=== PATIENT | male | born 1970 | race Hispanic/Latino ===

== ENCOUNTER 2016-11-11 21:46 | Inpatient (IN) | payer BC, MEDICAID ==
--- NOTE | 2016-11-11 21:57 | ED PDOC ---
Arrival/HPI - General Time Seen by Provider: 11/11/16 21:47 Historian: Patient - History of Present Illness Narrative History of Present Illness (Text): 11/11/16 21:50 Fran Myles is a 46 year old male who presents to the emergency department for evaluation of right sided weakness following a syncopal episode few hours prior. Patient states that he fell down 4 hours prior and was found unconscious on the floor by his 2 hours later. Patient developed right sided weakness following the episode. Currently patient is alert, oriented X3 and does not have slurred speech or facial droop. Denies any chest pain, shortness of breath, nausea, vomiting, urinary/bowel incontinence or any other complaints at this time. Time/Duration: 4-6 hours Symptom Onset: Sudden Symptom Course: Improving Severity Level: Mild Context: Home Past Medical History - Provider Review Nursing Documentation Reviewed: Yes - Infectious Disease Hx of Infectious Diseases: None - Tetanus Immunization Tetanus Immunization: Unknown - Psychiatric Hx Depression: No Hx Emotional Abuse: No Hx Physical Abuse: No Hx Substance Use: No - Suicidal Assessment Feels Threatened In Home Enviroment: No Family/Social History - Physician Review Nursing Documentation Reviewed: Yes Family/Social History: No Known Family HX Smoking Status: Heavy Smoker > 10 Cigarettes Daily Hx Alcohol Use: No Hx Substance Use: No Hx Substance Use Treatment: No Allergies/Home Meds Allergies/Adverse Reactions: Allergies No Known Allergies Allergy (Verified 11/11/16 21:54) Review of Systems - Physician Review All systems were reviewed & negative as marked: Yes - Review of Systems Constitutional: Normal. absent: Fatigue, Fevers Respiratory: Normal. absent: SOB Cardiovascular: Normal. absent: Chest Pain Gastrointestinal: absent: Nausea, Vomiting Genitourinary Male: Normal Neurological: Other (right sided weakness ). absent: Headache, Dizziness, Facial Droop Psychiatric: Normal Physical Exam Vital Signs Reviewed: Yes Vital Signs Temp Pulse Resp BP Pulse Ox 11/12/16 02:25 88 16 148/84 99 11/11/16 23:47 98.2 F 82 18 156/92 H 99 11/11/16 22:56 74 174/103 H Temperature: Afebrile Blood Pressure: Normal Pulse: Regular Respiratory Rate: Normal Appearance: Positive for: Well-Appearing, Non-Toxic, Comfortable Pain Distress: None Mental Status: Positive for: Alert and Oriented X 3 - Systems Exam Head: Present: Atraumatic, Normocephalic Pupils: Present: PERRL Conjunctiva: Present: Normal Respiratory/Chest: Present: Clear to Auscultation, Good Air Exchange. No: Respiratory Distress, Accessory Muscle Use Cardiovascular: Present: Regular Rate and Rhythm, Normal S1, S2. No: Murmurs Upper Extremity: Present: Normal Inspection, Other (Right arm, no effort against gravity. ). No: Cyanosis, Edema Lower Extremity: Present: Normal Inspection. No: Edema Neurological: Present: GCS=15, CN II-XII Intact, Speech Normal, Motor Func Grossly Intact, Normal Sensory Function, Other (sensation intact. good radio tester strength. ) Skin: Present: Warm, Dry, Normal Color. No: Rashes Psychiatric: Present: Alert, Oriented x 3, Normal Insight, Normal Concentration Medical Decision Making ED Course and Treatment: 11/11/16 21:58 Impression: A 46 year old male who presents to the ed with right sided weakness following a syncopal episode hours prior to arrival. Plan: -- CT Head -- EKG -- Labs -- CXR Progress Notes: 11/11/16 22:13 EKG reviewed by me: NSR @ 82 bpm. Normal [place]. Normal interval. CT Head results reviewed: IMPRESSION: There is ? subtle hypodensity in the right thalamus on image 31 and 30 , possibility of an infarct is not excluded. MRI is recommended. 11/11/16 22:21 Case discussed with , neurologist, who recommends not to administer tPa as he passed the window. 11/12/16 01:15 CTA head results reviewed: IMPRESSION: Possible origin right [employer], right [employer] is poorly visualized, venous contamination, occlusion is not excluded. Case discussed with Dr. Oh, who is aware and agrees with the plan to admit patient to telemetry for CVA. Accepts patient under his service. 11/14/16 23:09 - Lab Interpretations Lab Results: 11/11/16 22:15 11/11/16 22:15 Lab Results 11/11/16 22:15: WBC 12.8 H D, RBC 6.02, Hgb 17.6, Hct 50.7, MCV 84.2, MCH 29.2, MCHC 34.7, RDW 14.2, Plt Count 191, MPV 12.6 H, Gran % 85.8 H, Lymph % (Auto) 9.1 L, Callahan % (Auto) 4.8, Eos % (Auto) 0.2 L, Baso % (Auto) 0.1, Gran # 11.00 H , Lymph # 1.2, Callahan # 0.6, Eos # 0.0, Baso # 0.01, PT 10.8, INR 1.00, APTT 28.8 , Sodium 138, Potassium 4.8, Chloride 98, Carbon Dioxide 28, Anion Gap 17, BUN 19, Creatinine 1.1, Est GFR ( Amer) > 60, Est GFR (Non-Af Amer) > 60, Random Glucose 117 H, Hemoglobin A1c 6.0, Calcium 9.9, Total Bilirubin 1.1, AST 31, ALT 40, Alkaline Phosphatase 69, Troponin I < 0.01, Total Protein 8.7 H, Albumin 4.6, Globulin 4.0, Albumin/Globulin Ratio 1.2, Triglycerides 159, Cholesterol 253 H, LDL Cholesterol Direct 175 H, HDL Cholesterol 43 I have reviewed the lab results: Yes - RAD Interpretation Narrative RAD Interpretations (Text): EXAM: CT Head Without Intravenous Contrast FINDINGS: Brain: There is ? subtle hypodensity in the right thalamus on image 31 and 30 , possibility of an infarct is not excluded. MRI is recommended. No hemorrhage. Ventricles: Unremarkable. No ventriculomegaly. Bones/joints: Unremarkable. No acute fracture. Soft tissues: Unremarkable. Sinuses: Unremarkable as visualized. No acute sinusitis. Mastoid air cells: Unremarkable as visualized. No mastoid effusion. IMPRESSION: There is ? subtle hypodensity in the right thalamus on image 31 and 30 , possibility of an infarct is not excluded. MRI is recommended. 11/12/16 01:15 EXAM: CT Angiography Head With Intravenous Contrast FINDINGS: Right internal carotid artery: No acute findings. Intracranial segment is patent with no significant stenosis. No aneurysm. Right anterior cerebral artery: Unremarkable. No occlusion or significant stenosis. No aneurysm. Right middle cerebral artery: Unremarkable. No occlusion or significant stenosis. No aneurysm. Right posterior cerebral artery: Possible origin right [employer], right [employer] is poorly visualized, venous contamination, occlusion is not excluded. No aneurysm. Right vertebral artery: Unremarkable as visualized. Left internal carotid artery: No acute findings. Intracranial segment is patent with no significant stenosis. No aneurysm. Left anterior cerebral artery: Hypoplastic A1 segment of the left BARBI. No occlusion or significant stenosis. No aneurysm. Left middle cerebral artery: Unremarkable. No occlusion or significant stenosis. No aneurysm. Left posterior cerebral artery: Unremarkable. No occlusion or significant stenosis. No aneurysm. Left vertebral artery: Unremarkable as visualized. Basilar artery: Unremarkable. No occlusion or significant stenosis. No aneurysm. Other vasculature: Some degree of venous contamination. IMPRESSION: Possible origin right [employer], right [employer] is poorly visualized, venous contamination, occlusion is not excluded. 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 - EKG Interpretation Interpreted by ED Physician: Yes Type: 12 lead EKG - Medication Orders Current Medication Orders: Discontinued Medications Acetaminophen (Tylenol 325mg Tab) 650 mg PO Q4H PRN PRN Reason: Fever >100.5 F Allopurinol (Zyloprim) 300 mg PO DAILY [facility] Last Admin: 11/14/16 10:45 Dose: 300 MG Amlodipine Besylate (Norvasc) 2.5 mg PO ONCE ONE Stop: 11/12/16 17:14 Last Admin: 11/12/16 17:33 Dose: 2.5 MG MAR Pulse and Blood Pressure Document 11/12/16 17:33 KOPPS (Rec: 11/12/16 17:34 [place] [facility] [id number] Pulse Pulse Rate (60-90) 85 Blood Pressure Blood Pressure (100/60-150/90) 156/103 Amlodipine Besylate (Norvasc) 5 mg PO DAILY [facility] Last Admin: 11/14/16 10:44 Dose: 5 MG MAR Pulse and Blood Pressure Document 11/14/16 10:44 KKA (Rec: 11/14/16 10:44 KKA [facility] [id number] Blood Pressure Blood Pressure (100/60-150/90) 140/90 Amlodipine Besylate (Norvasc) 2.5 mg PO STAT STA Stop: 11/12/16 20:49 Last Admin: 11/12/16 21:10 Dose: 2.5 MG MAR Pulse and Blood Pressure Document 11/12/16 21:10 TTC (Rec: 11/13/16 03:05 TTC [facility] [id number] Pulse Pulse Rate (60-90) 80 Blood Pressure Blood Pressure (100/60-150/90) 153/82 Apixaban (Eliquis) 5 mg PO BID [facility] PRN Reason: Protocol Aspirin (Ecotrin) 325 mg PO STAT STA Stop: 11/12/16 01:38 Last Admin: 11/12/16 02:37 Dose: 325 MG Aspirin (Aspirin) 325 mg PO DAILY [facility] Last Admin: 11/14/16 10:44 Dose: 325 MG Atorvastatin Calcium (Lipitor) 20 mg PO DIN CORAL Last Admin: 11/12/16 17:33 Dose: 20 MG Atorvastatin Calcium (Lipitor) 80 mg PO DIN CORAL Last Admin: 11/14/16 16:44 Dose: 80 MG Diphenhydramine HCl (Benadryl) 50 mg PO HS PRN PRN Reason: Insomnia Last Admin: 11/13/16 23:08 Dose: 50 MG Gadodiamide ( Omniscan) Confirm Administered Dose 5,740 mg IV .STK-MED ONE Stop: 11/12/16 14:17 Sodium Chloride (Sodium Chloride 0.9%) 1,000 mls @ 100 mls/hr IV .Q10H STA Stop: 11/12/16 12:30 Last Admin: 11/12/16 08:14 Dose: 100 MLS/HR eMAR Start Stop Document 11/12/16 08:14 KOPPS (Rec: 11/12/16 08:15 KOPPS [id number]) Intravenous Solution Start Date 11/12/16 Start Time 08:14 Iodixanol (Visipaque 320 Mg/Ml 100 Ml) Confirm Administered Dose 100 ml IV .STK- MED ONE Stop: 11/12/16 00:11 Labetalol HCl (Trandate) 20 mg IV STAT STA Stop: 11/11/16 22:47 Last Admin: 11/11/16 22:56 Dose: 20 MG MAR Pulse and Blood Pressure Document 11/11/16 22:56 CROW (Rec: 11/11/16 22:57 CROW [facility] [id number] Pulse Pulse Rate (60-90) 74 Blood Pressure Blood Pressure (100/60-150/90) 174/103 eMAR Start Stop Document 11/11/16 22:56 CROW (Rec: 11/11/16 22:57 CROW [facility] [id number][place] Intravenous Solution Start Date 11/11/16 Start Time 22:50 End Date 11/11/16 End time 22:57 Total Infusion Time 7 Nicotine (Nicoderm Cq) 1 patch TD DAILY [facility] Last Admin: 11/14/16 10:45 Dose: 1 PATCH MAR Patch Placement/Removal Document 11/14/16 10:45 KKA (Rec: 11/14/16 10:45 KKA [facility] [id number] Patch Removal Removal of previous patch done Yes Ondansetron HCl (Zofran Inj) 4 mg IVP ONCE ONE Stop: 11/12/16 11:16 Last Admin: 11/12/16 11:27 Dose: 4 MG IVP Administration Document 11/12/16 11:27 SULMA (Rec: 11/12/16 11:29 KOPPS [id number]) Charges for Administration # of IVP Administrations 1 Ondansetron HCl (Zofran Inj) 4 mg IVP Q6H PRN PRN Reason: Nausea/Vomiting Last Admin: 11/13/16 11:01 Dose: 4 MG IVP Administration Document 11/13/16 11:01 EDU (Rec: 11/13/16 11:01 EDU [id number]) Charges for Administration # of IVP Administrations 1 Pantoprazole Sodium (Protonix Ec Tab) 40 mg PO 0630 CORAL Last Admin: 11/14/16 07:00 Dose: 40 MG NIHSS Scale ([place]) Time Performed: 22:10 - How Severe is the Stoke Baseline Level of Consciousness: 0=Alert LOC to Questions: 0=Both comments correct LOC to commands: 0=Obeys both correctly Best Gaze: 0=Normal Visual: 0=No visual loss Facial: 0=Normal Motor Arm - Left: 0=No drift Motor Arm - Right: 3=No effort against gravity (falls immediately) (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) Motor Leg - Left: 0=No drift Motor Leg - Right: 0=No drift Limb Ataxia: 0=Absent Sensory: 0=Normal Best Language: 0=No aphasia Dysarthia: 0=Normal articulation Extinction & Inattention (Neglect): 0=Normal, no object Score: 3 Risk Level: Minor Stroke Risk rTPA Inclusion/Exclusion - Refusal of Treatment Patient Refused Treatment: No - Inclusion Criteria for Altepase Patient is 18 years or Older: Yes The Clinical Diagnosis of Ischemic Stroke That is Causing a Potentially Disabling Neurological Deficit: Yes Time of Onset is Well Established to be Less Than 270 Minute Before Treatment Would Begin: No Risk/Benefit Discussed With Patient/Family Member Present: Yes - Exclusion Criteria for Altepase Uncontrolled Hypertension at Time of Treatment (Systolic BP above 185 or Diastolic BP above 110 mmHg): No Active Internal Bleeding: No Known Bleeding Diathesis Including but Not Limited to: Platelets Below 100,000/ mm,PTT Above 40 sec After Heparin Use, Current Use of Oral Anitcoagulant With INR Greater Than 1.7 or PT Greater Than 15 secs: No Evidence of an Intracranial Hemorrhage: No Evidence of Major Acute Infarct With Signs Greater Than 1/3 MCA Territory: No Suspicion of Subarachnoid Hemorrhage on Pretreatment Evaluation Even if CT Head Negative For Hemorrhage: No - Warning to TPA With Conditions Following Conditions Weighed Against Anticipated Benefit: Yes Condition: Care Team Unable to Determine Eligibilty - Scribe Statement The provider has reviewed the documentation as recorded by the Tone Orta Provider Attestation: All medical record entries made by the Tone were at my direction and personally dictated by me. I have reviewed the chart and agree that the record accurately reflects my personal performance of the history, physical exam, medical decision making, and the department course for this patient. I have also personally directed, reviewed, and agree with the discharge instructions and disposition. Disposition/Present on Arrival - Present on Arrival Any Indicators Present on Arrival: No History of DVT/PE: No History of Uncontrolled Diabetes: No Urinary Catheter: No History Surgical Site Infection Following: None - Disposition Have Diagnosis and Disposition been Completed?: Yes Diagnosis: Cerebral vascular accident Disposition: HOSPITALIZED Disposition Time: 01:15 Condition: FAIR
[2016-11-11 22:02] VITALS: BMI 30.9
[2016-11-11] MEDS ORDERED: Labetalol 5 mg/ml Inj 20ML IV STA (22:46)
[2016-11-11 23:01] LABS: ADD MANUAL DIFF? NO
[2016-11-11 23:09] LABS: BASO # 0.01 K/mm3 (0.0-2.0); BASO % 0.1 % (0.0-3.0); EOS % 0.2 % (1.5-5.0); GRAN % 85.8 % (50.0-68.0); HEMATOCRIT 50.7 % (42.0-52.0); LYMPH # 1.2 (1.2-3.4); LYMPH % 9.1 % (22.0-35.0); MEAN CELL VOLUME 84.2 fL (80.0-105.0); MEAN CORPUSCULAR HEMOGLOBIN 29.2 pg (25.0-35.0); MEAN CORPUSCULAR HGB CONC 34.7 g/dl (31.0-37.0); MEAN PLATELET VOLUME 12.6 fl (7.0-11.0); MONO # 0.6 (0.1-0.6); MONO % 4.8 % (1.0-6.0); PLATELET COUNT 191 10^3/uL (120.0-450.0); RED CELL DISTRIBUTION WIDTH 14.2 % (11.5-14.5); WHITE BLOOD COUNT 12.8 10^3/ul (4.5-11.0)
[2016-11-11 23:16] LABS: ALB/GLOB RATIO 1.2 (1.1-1.8); ALKALINE PHOSPHATASE 69 U/L (38-133); ALT/SGPT 40 U/L (7-56); AST/SGOT 31 U/L (15-59); BILIRUBIN,TOTAL 1.1 mg/dL (0.2-1.3); BLOOD UREA NITROGEN 19 mg/dL (7-21); CALCIUM 9.9 mg/dL (8.4-10.5); CARBON DIOXIDE 28 mmol/L (21-33); CHLORIDE 98 mmol/L (98-107); CHOLESTEROL 253 mg/dL (130-200); GFR AFRICAN-AMERICAN > 60; GLUCOSE,RANDOM 117 mg/dL (70-110); POTASSIUM 4.8 mmol/L (3.6-5.0); SODIUM 138 mmol/L (132-148); TOTAL PROTEIN 8.7 g/dL (5.8-8.3)
[2016-11-11 23:27] LABS: TROPONIN I < 0.01 ng/mL
[2016-11-11 23:37] LABS: PARTIAL THROMBOPLASTIN TIME 28.8 Seconds (23.7-30.8)
[2016-11-12] MEDS ORDERED: Iodixanol 320 MG/ML 100 ML BOTTLE IV ONE (00:10)
[2016-11-12] MEDS ORDERED: Aspirin 325 mg EC Tablets PO STA (01:37)
[2016-11-12] MEDS ORDERED: Sodium Chloride 0.9% 1,000 ML IV STA (02:31)
--- NOTE | 2016-11-12 07:28 | CT ---
PROCEDURE: CT HEAD WITHOUT CONTRAST. HISTORY: Code Stroke COMPARISON: None available. TECHNIQUE: Axial computed tomography images were obtained through the head/brain without intravenous contrast. Radiation dose: Total exam DLP = 983.89 mGy-cm. This CT exam was performed using one or more of the following dose reduction techniques: Automated exposure control, adjustment of the mA and/or kV according to patient size, and/or use of iterative reconstruction technique. FINDINGS: HEMORRHAGE: No intracranial hemorrhage. BRAIN: Fleming-white matter differentiation is preserved. There is no mass, mass effect or abnormal extra-axial fluid collection. There is normal density in the larger dural venous sinuses. VENTRICLES: The ventricles are normal in size, shape and configuration. CALVARIUM: The skull base and calvarium are normal. PARANASAL SINUSES: Predominantly clear. MASTOID AIR CELLS: Predominantly clear. OTHER FINDINGS: None. IMPRESSION: No acute intracranial abnormality.
--- NOTE | 2016-11-12 07:56 | CT ---
PROCEDURE: CT Cervical Spine without contrast HISTORY: Right-sided weakness COMPARISON: None available. TECHNIQUE: Axial computed tomography images were obtained of the cervical spine without the use of intravenous contrast. Coronal and sagittal reformatted images were created and reviewed. Radiation dose: Total exam DLP = 670.12 mGy-cm. This CT exam was performed using one or more of the following dose reduction techniques: Automated exposure control, adjustment of the mA and/or kV according to patient size, and/or use of iterative reconstruction technique. FINDINGS: VERTEBRAE: There is normal alignment of the cervical vertebral bodies. There is reversal of normal cervical lordosis with moderate cervical kyphosis centered at C4-5. There is no acute fracture or spondylolisthesis. Bone mineralization is normal. The craniocervical junction is normal. The atlantoaxial joint is normal. DISCS/SPINAL CANAL/NEURAL FORAMINA: There is multilevel degenerative disc disease due to combination of disc osteophyte complexes, uncovertebral joint hypertrophy and multilevel facet arthropathy, worse at C4-5 with moderate right and severe left neural foraminal stenosis and mild spinal canal stenosis. PARASPINAL SOFT TISSUES: There is no prevertebral soft tissue thickening. The paraspinous soft tissues are normal. OTHER FINDINGS: There is no apical pneumothorax. The visualized lung apices are clear. IMPRESSION: No acute fracture or spondylolisthesis. Multilevel degenerative disc disease, worse at C4-5 with moderate right and severe left neural foraminal stenosis and mild spinal canal stenosis. A preliminary report was provided by [employer] [facility].
--- NOTE | 2016-11-12 08:04 | CT ---
PROCEDURE: CT Angiography of the Brain. HISTORY: Right-sided weakness COMPARISON: None available. TECHNIQUE: CT angiography of the intracranial arteries was performed. Coronal and sagittal maximum intensity projection reformated images were generated. Radiation dose: 18.[address] exam was performed using one or more of the following dose reduction techniques: Automated exposure control, adjustment of the mA and/or kV according to patient size, and/or use of iterative reconstruction technique. FINDINGS: INTERNAL CEREBRAL ARTERIES: Normal in caliber there are atherosclerotic calcifications in the right petrous segment and left cavernous carotid segment. . The skull base, petrous, cavernous and supraclinoid segments are bilaterally widely patient. ANTERIOR CEREBRAL ARTERIES: Normal in caliber. The right A1 segment is hypoplastic, an anatomic variant. . A1 and A2 segments are widely patent. Smaller distal branches unremarkable, as visualized. MIDDLE CEREBRAL ARTERIES: Normal in caliber. M1 and M2 segments are widely patent. Perisylvian branches grossly symmetric. POSTERIOR CIRCULATION: Basilar Artery: Normal in caliber Distal Vertebral Arteries: Normal in caliber. The right vertebral artery is hypoplastic, an anatomic variant. Posterior Cerebral Arteries: There is probable origin of the right TONGUER. The left posterior cerebral artery is normal. Posterior Inferior Cerebellar Arteries: Unremarkable. ANEURYSM/ VASCULAR MALFORMATIONS: None. OTHER FINDINGS: None. IMPRESSION: Suspect origin of right posterior cerebral artery. Right posterior cerebral artery is not well visualized, examination is limited due to venous contamination, pathology cannot be entirely excluded. If clinically indicated, an MRA of the head without intravenous contrast may be performed for further evaluation. A preliminary report was provided by [employer] [facility].
--- NOTE | 2016-11-12 09:15 | RAD ---
HISTORY: cva COMPARISON: No prior. FINDINGS: LUNGS: No active pulmonary disease. PLEURA: No significant pleural effusion identified, no pneumothorax apparent. CARDIOVASCULAR: Normal. OSSEOUS STRUCTURES: No significant abnormalities. VISUALIZED UPPER ABDOMEN: Normal. OTHER FINDINGS: None. IMPRESSION: No active disease.
--- NOTE | 2016-11-12 09:25 | RAD ---
PROCEDURE: Radiographs of the Right Shoulder HISTORY: Fall COMPARISON: No prior. FINDINGS: BONES: Bone alignment and mineralization are normal. There is no acute fracture or bone destruction. JOINTS: Normal. Glenohumeral and acromioclavicular joints preserved. No osteoarthritis. SOFT TISSUES: Normal. OTHER FINDINGS: None. IMPRESSION: No acute fracture or dislocation.
--- NOTE | 2016-11-12 12:08 | CARD ---
APPROVED REPORT EKG Measurement Heart [id number] <Conclusion> Normal sinus rhythm Normal ECG
--- NOTE | 2016-11-12 12:36 | CON ---
DATE: 11/12/2016 HISTORY OF PRESENT ILLNESS: He is a 46-year-old, came to the hospital following weakness on the righ t side. The patient went to the bathroom and suddenly felt weak on the right side and also lost cons ciousness. No tongue bite. No urinary incontinence and brought him here to the Emergency Room. CAT scan of the head was done, which was reported negative. PAST MEDICAL HISTORY: The patient also has a past medical history of gout and a kidney stone. ALLERGIES: No known drug allergies. REVIEW OF SYSTEMS: A 10-point review of system was negative except right-sided weakness. PHYSICAL EXAMINATION: VITAL SIGNS: Blood pressure is 174/103. HEENT: Normocephalic, atraumatic. NECK: Supple. NEUROLOGIC: Awake, alert, oriented x 3. No aphasia. Cranial nerves II to XII were tested. Pupils reactive. EOM intact. Visual blackburn full. No facial asymmetry. Tongue midline. Motor examination , moves left side okay 5/5, right side 1/5, right lower extremity 3/5. Sensory: Decreased sensation on the right side as compared to the left side. Cerebellar, gait was deferred. IMPRESSION: Left hemispheric stroke with right-sided weakness. PLAN: Will do the MRI/MRA of the head and carotid Doppler, put on aspirin and physical therapy and o ccupational therapy. Workup in progress, will follow up. Sam Mcpherson MD cc: [id number] TT: 11/12/2016 12:35:52 Confirmation # [id number] Dictation # [id number]
[2016-11-12] MEDS ORDERED: Gadodiamide 287 MG/ML VIAL (20ML) IV ONE (14:16)
--- NOTE | 2016-11-12 15:54 | MRI ---
PROCEDURE: MRI BRAIN WITH AND WITHOUT CONTRAST HISTORY: right side weaknee COMPARISON: None. TECHNIQUE: Multiplanar, multisequence MR images of the brain were obtained with and without intravenous contrast enhancement. 20 cc of Omniscan FINDINGS: HEMORRHAGE: None DWI: There is an acute infarct in the left posterior frontal lobe along the precentral gyrus. Smaller adjacent cortical infarcts are seen in the parietal lobe and mid frontal lobe on the left. There is a single small cortical infarct in the right parietal lobe. The infarcts are also visible on the FLAIR images. BRAIN PARENCHYMA: As above No atrophy or chronic microvascular ischemic changes. ENHANCEMENT: No abnormal intracranial enhancement. VENTRICLES: Unremarkable. No hydrocephalus. CRANIUM: Unremarkable. ORBITS: Grossly unremarkable. PARANASAL SINUSES/MASTOIDS: Clear VASCULAR SYSTEM: Skull base flow voids intact. OTHER FINDINGS: None . IMPRESSION: Acute infarct in the left posterior frontal lobe involving the precentral gyrus. Scattered smaller cortical infarcts are also seen.
--- NOTE | 2016-11-12 15:55 | MRI ---
PROCEDURE: Magnetic Resonance Angiography Brain HISTORY: stroke COMPARISON: None available. TECHNIQUE: 3D time of flight MR angiography of the intracranial arteries was performed. Rotating maximum intensity projection images were generated. FINDINGS: INTERNAL CEREBRAL ARTERIES: Unremarkable. The skull base, petrous, cavernous and supraclinoid segments are bilaterally widely patient. ANTERIOR CEREBRAL ARTERIES: Unremarkable. A1 and A2 segments are widely patent. Smaller distal branches unremarkable, as visualized. MIDDLE CEREBRAL ARTERIES: Unremarkable. M1 and M2 segments are widely patent. Perisylvian branches grossly symmetric. POSTERIOR CIRCULATION: Basilar Artery: Unremarkable. Distal Vertebral Arteries: Unremarkable. Posterior Cerebral Arteries: Unremarkable. Posterior Inferior Cerebellar Arteries: Unremarkable. ANEURYSM/ VASCULAR MALFORMATIONS: None. OTHER FINDINGS: None. IMPRESSION: Unremarkable MR angiography of the brain.
--- NOTE | 2016-11-12 15:59 | MRI ---
PROCEDURE: MR Angiography of the neck with and without contrast HISTORY: stroke COMPARISON: None available. TECHNIQUE: Contrast enhanced and [id number] angiography of the neck was performed. Rotating 3D maximum intensity projection images of the cervical carotid and vertebral arteries were generated. 20 cc of Omniscan FINDINGS: RIGHT CAROTID ARTERIES: Common Carotid Artery: Normal. Carotid Bifurcation: Normal. Internal Carotid Artery:Normal. External Carotid Artery (proximal branches): Normal. LEFT CAROTID ARTERIES: Common Carotid Artery: Normal. Carotid Bifurcation: Normal. Internal Carotid Artery:Normal. External Carotid Artery (proximal branches): Normal. VERTEBRAL ARTERIES: Right Vertebral Artery: Normal. Left Vertebral Artery: Smaller in size OTHER FINDINGS: None. IMPRESSION: Normal MR Angiography of the neck.
--- NOTE | 2016-11-12 16:03 | MRI ---
PROCEDURE: MR CERVICAL SPINE WITHOUT CONTRAST HISTORY: cva right side weakness COMPARISON: None available. TECHNIQUE: Multiecho multiplanar sequences were performed through the cervical spine without the use of intravenous contrast. FINDINGS: There is straightening of the cervical spine Craniocervical junction unremarkable. Vertebral body heights preserved. No marrow signal abnormality. Normal cervical cord. No paraspinal abnormality. C2-C3: No disc herniation, spinal canal stenosis or neural foraminal narrowing. C3-C4: No disc herniation, spinal canal stenosis or neural foraminal narrowing. C4-C5: There is a disc bulge with bilateral foraminal stenosis left greater than right. There is mild central stenosis C5-C6: There is disc degeneration with severe bilateral foraminal stenosis C6-C7: Disc degeneration with mild stenosis centrally and mild foraminal stenosis C7-T1: No disc herniation, spinal canal stenosis or neural foraminal narrowing. OTHER FINDINGS: None. IMPRESSION: Mild multilevel disc degeneration with foraminal stenosis as described. No abnormalities in the cord
--- NOTE | 2016-11-12 19:00 | US ---
HISTORY: Leg pain and swelling. Evaluate for DVT PHYSICIAN(S): Juan David Medrano MD. TECHNIQUE: Duplex sonography and color-flow Doppler with graded compression were used to evaluate the deep venous systems of both lower extremities. FINDINGS: The visualized deep venous systems of both lower extremities are sonographically normal and compressible. Normal wave forms and augmentation are seen. There is no sonographic evidence for deep venous thrombosis in the visualized segments of both lower extremities. There is a 1.8 x 2.0 cm oblong fluid collection in the right popliteal fossa. Calcification is noted within the collection. This could represent an atypical Nicole cyst. IMPRESSION: No sonographic evidence for deep venous thrombosis in the visualized segments of both lower extremities.
--- NOTE | 2016-11-12 19:02 | US ---
PROCEDURE: Bilateral carotid artery duplex ultrasound HISTORY: Carotid stenosis syncope PHYSICIAN(S): Juan David Medrano MD. TECHNIQUE: Duplex sonography and color-flow Doppler were used to evaluate the carotid bifurcations and limited segments of the vertebral arteries bilaterally. FINDINGS: There is mild smooth heterogeneous plaque noted at the carotid bifurcations bilaterally. The peak systolic velocity in the proximal right internal carotid artery is 85 cm/sec. This corresponds to a 20 to 39% proximal right ICA stenosis. Normal systolic velocities are noted in the proximal right external carotid artery. There is antegrade flow in the right vertebral artery. The peak systolic velocity in the proximal left internal carotid artery is 88 cm/sec. This corresponds to a 20 to 39% proximal left ICA stenosis. Normal systolic velocities are noted in the proximal left external carotid artery. There is antegrade flow in the left vertebral artery. IMPRESSION: 1. Bilateral 20-39% proximal ICA stenoses. 2. Antegrade flow in both vertebral arteries.
--- NOTE | 2016-11-13 09:07 | HP ---
CHIEF COMPLAINT: Weakness on the right side. HISTORY OF PRESENT ILLNESS: This is a 46-year-old man with little past medical history who presented to the Emergency Room in the muffler hand hours with weakness on the right side. The patient says he awoke and tried to go to the bathroom, collapsed, felt weak in the right leg, weak in the arm, initially thought his arm and leg had "fallen asleep," but then realized something else was wrong, and then called an ambulance and came to the Emergency Room. Speech was never involved. He actually had a good hand grasp, but weakness in the elbow, wrist, shoulder, as well as the right leg. Speech was intact. There is no expressive aphasia. Workup began in the Emergency Room. Neurology consultation was called. He was not a candidate for TPA, as he awoke with these symptoms of unknown duration, and was admitted for further workup. PAST MEDICAL HISTORY: He was first seen in the office once in 2011, and again in 2013. He is under the care of Dr. Oden, the bridge club manager in [place] for gout. He sees him approximately twice a year. There is no past history of hypertension, diabetes, cholesterol, tuberculosis, asthma, seizures, TIA, CVA or coronary artery disease or cancers of any type. He has a history of renal colic in the past. MEDICATIONS: His only current medication is allopurinol 300 mg daily. SOCIAL HISTORY: He smokes 1-1/2 to 2 packs of cigarettes a day, occasionally drinks alcohol. He is with a 12-year-old daughter, and lives with a nurse from our hospital, currently living with a woman who is a registered nurse from our hospital. REVIEW OF SYSTEMS: Otherwise, unremarkable except for cough related to smoking. 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 PHYSICAL EXAMINATION: GENERAL: The patient was seen this Friday evening in room 273, bed 1. Earlier this morning, he was in the Emergency Room headed for a CAT scan CTA, and then later in the morning for MRI/MRA of the head and neck. Now in room 273 , bed 1, he is awake, alert, clear, appropriate. Speech is near normal with no expressive aphasia. HEAD AND NECK: Unremarkable. HEENT: Conjunctivae are pink. Mucous membranes are moist. NECK: Supple, without masses. There are no carotid bruits. LUNGS: Show good aeration, right and left. There is a wet phlegmy smoker's cough. HEART: Regular, nontachycardic. ABDOMEN: Soft, nontender. EXTREMITIES: No edema in the lower extremities. There is some swelling in the right upper extremity near the shoulder and arm. Right hand grasp is good, 4/ 5. Left shoulder and elbow strength is only 1-2/5. Leg strength is better, but yet weak. LABORATORY DATA: Labs were reviewed. MRI showed acute stroke. MRA of the neck and of the head is essentially unremarkable. Carotid ultrasound raises suspicion of some minor plaque not seen on MRA. IMPRESSION: 1. Acute stroke. I am suspicious of a thrombotic event related to tobacco use , which most likely has subsequently resolved. 2. Tobacco use disorder. 3. Gout. 4. Elevated blood pressure upon this first day of admission. 5. H/O renal stones PLAN: The patient seemed to respond nicely to amlodipine 2.5 mg given a few hours ago. We will give another 2.5 mg and start him on 5 mg daily. We will resume his allopurinol 300 mg daily. Physical therapy already saw the patient and ambulated with him with a walker. He will need some degree of acute rehab. I ____ explained to the patient that I am optimistic about his prognosis with a little bit of time and aggressive physical therapy. I also counseled him about tobacco use. He understands fully and completely that he should never smoke again. We will follow with neurology notes, and input up to this point are greatly appreciated. Bakari Oh MD cc: [id number] TT: 11/13/2016 09:06:38 jn EDITH
[2016-11-13 09:16] LABS: CHOLESTEROL 230 mg/dL (130-200)
--- NOTE | 2016-11-13 10:00 | CON ---
DATE: 11/13/2016 SERVICE: Cardiology CONSULTING PHYSICIAN: Dr. Zonia Page. REASON FOR CONSULTATION: Cardiac evaluation, right-sided weakness, cerebrovascular accident. BRIEF CLINICAL HISTORY: A 46-year-old male with a past medical history significant for gout, being f ollowed by Dr. 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, came in with acute CVA with weak ness of the right upper and lower extremities. The patient said that he suddenly passed out. When h e woke up from the sleep, then felt right-sided weakness, came to the Emergency Room. Denies any kortney st pain, shortness of breath, any palpitation. Denies any prior episode of weakness or TIA in the me st. PAST MEDICAL HISTORY: Significant for gout. No history of diabetes, hypertension. CURRENT MEDICATIONS: The patient is taking allopurinol 300 mg daily. SOCIAL HISTORY: Used to smoke a pack and half to 2 packs of cigarettes per day, socially drinks. 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 FAMILY HISTORY: Significant for coronary artery disease. Father at younger age with acute hear t attack. ALLERGIES: No known drug allergies. PAST SURGICAL HISTORY: No significant surgical history. REVIEW OF SYSTEMS: Per HPI. PHYSICAL EXAMINATION: VITAL SIGNS: Temperature afebrile, heart rate 60, blood pressure 133/76. HEENT: PERRLA. Extraocular muscles intact. NECK: Supple. No carotid bruit or thyromegaly. CHEST: Clear to auscultation. HEART: S1, S2 regular. ABDOMEN: Soft. EXTREMITIES: Clubbing and cyanosis negative. LABORATORY DATA: Blood workup as follows: WBC 12.8, hemoglobin 17.6, hematocrit 50.7, platelet coun t 191. Chemistry shows sodium 131, potassium 4.8, chloride 90, carbon dioxide 28, anion gap of 17, B UN 19, creatinine 1.1. Triglyceride yesterday 159, cholesterol at 10:00 p.m. was 253, LDL 175. IMPRESSION: Hyperlipidemia, active tobacco abuse, acute cerebrovascular accident with right-sided we akness. RECOMMENDATION: We will get echo to assess LV function and rule out any thrombus. Bilateral carotid duplex 20-39% stenosis. We will start baby aspirin and high dose of atorvastatin. We will follow w ith you. Thank you, Dr. Oh/Dr. Osuna, for providing the opportunity in taking care of the patient. Zonia Page MD cc: [id number] TT: 11/13/2016 09:59:16 Confirmation # [id number] Dictation # [id number] tn
[2016-11-13 11:15] VITALS: O2SAT 94
--- NOTE | 2016-11-13 12:38 | PN ---
DATE: 11/13/2016 CHIEF COMPLAINT: Right-sided weakness. HISTORY OF PRESENT ILLNESS: This is a 46-year-old man with past medical history of gout, on allopuri nol, who is being followed by Dr. Oden, his networks software consultant, who came to the hospital for acute onse t of right-sided weakness. He said he suddenly passed out and woke up from his sleep and felt that h is right side was weak and, therefore, came to the hospital for further evaluation. He underwent an MRI of the brain which showed an acute infarct in the left posterior frontal lobe involving the prece ntral gyrus and scattered small cortical infarction were also seen, especially small adjacent cortica l infarcts are seen in the parietal lobe and the mid frontal lobe on the left and small cortical infa rct on the right parietal lobe. His MRI of the C-spine showed multiple disk degeneration with forami nal stenosis mostly at C4-C5 and C5-C6 which had bilateral foraminal stenosis, severe in nature. Cur rently, he is on a baby aspirin 81 mg. Cardiology has seen the patient and advised an echo. He is c urrently on aspirin 325 and Lipitor 80 mg for stroke prevention. His right-sided weakness is getting slightly better. PT is on site. FAMILY HISTORY: No family history of CVAs. PAST MEDICAL HISTORY: He has history of gout and is on allopurinol. SOCIAL HISTORY: No illicit drug use, smoking, or ETOH abuse. ALLERGIES: No known drug allergies. REVIEW OF SYSTEMS: A 14-point review of systems negative except for the HPI. MEDICATIONS: Reviewed via nurse's reconciliation sheet. PHYSICAL EXAMINATION: VITAL SIGNS: Temperature is afebrile, pulse rate 74, blood pressure 144/90 respiratory rate of 18, o xygen 95% via room air. GENERAL: The patient is sitting at the edge of the bed, in no acute distress. HEENT: Atraumatic, normocephalic. PERRLA. Extraocular muscles intact. NECK: Supple, no JVD, no adenopathy noted. LUNGS: Clear to auscultation. No adventitious sounds. HEART: S1, S2, normal rate and rhythm. No murmurs, rubs, or gallops. ABDOMEN: Soft, nontender, nondistended. Bowel sounds present. EXTREMITIES: No clubbing, no cyanosis. Peripheral pulses 2+ felt bilaterally. NEUROLOGIC: The patient is alert, oriented to person, place, month and year. Speech is fluent witho ut any errors. Cranial nerves II-XII are intact. MOTOR: Has right-sided weakness; left side is intact. Right toe is upgoing. Left toe is downgoing. SENSORY: Light touch, pinprick, proprioception, vibration intact. DTRs are 2+ throughout. COORDINATION: Cnzvan-rc-afby intact. Difficulty with the right due to mild right-sided weakness; ot herwise is intact on the left. GAIT: Deferred for now. LABORATORY DATA: Triglycerides are 175, cholesterol is 230, LDL is 154. ASSESSMENT AND PLAN: This is a 46-year-old man with a history of gout who had suddenly passed out an d woke up with right-sided weakness, found to have acute infarctions to the left posterior frontal lo be involving the precentral gyrus with scattered infarcts and cortical infarcts in the parietal and m idfrontal lobe on the left and a small single cortical infarct in the right parietal lobe. Based on the distribution of the infarcts and his episodes of syncope followed by weakness, I feel like this i s likely secondary to an arrhythmia, like atrial fibrillation paroxysmal. He is currently on a Khadra r monitor. He also has elevated triglycerides and LDL and total cholesterol. His A1c 6. At this ti me, I feel like his presentation of right-sided weakness with a syncopal event is likely secondary to possibly a paroxysmal arrhythmia. At this time, recommend him: 1. To be on Eliquis 2.5 mg p.o. b.i.d. starting for an anticoagulant affect. 2. Will await cardiology's evaluation to see if Eliquis is okay and give clearance for cardiology to start Eliquis for stroke prevention. 3. Awaiting the echo report. 4. Needs acute rehab and acute physical and occupational therapy for right-sided weakness. 5. I sent out hypercoagulable workup which will be followed in a few weeks, as well as a homocystein e level. At this time, continue current present medical management. Thank you for this followup. Wallace Mcpherson MD cc: [id number] TT: 11/13/2016 12:37:57 Confirmation # [id number] Dictation # [id number] mn
--- NOTE | 2016-11-13 17:57 | CARD ---
APPROVED REPORT EKG Measurement Heart [id number] CT [id number] <Conclusion> Normal sinus rhythm Normal ECG
--- NOTE | 2016-11-13 20:38 | CARD ---
APPROVED REPORT EXAM: Two-dimensional and M-mode echocardiogram with Doppler and color Doppler. INDICATION R/O THROMBUS 2D DIMENSIONS Left Atrium (2D)3.9 (1.6-4.0cm)IVSd1.2 (0.7-1.1cm) LVDd5.2 (3.9-5.9cm)PWd1.2 (0.7-1.1cm) LVDs3.4 (2.5-4.0cm)FS (%) 34.8 % LVEF (%)63.7 (>50%) M-Mode DIMENSIONS Aortic Root3.50 (2.2-3.7cm)Aortic Cusp Exc.1.60 (1.5-2.0cm) Aortic Valve AoV Peak Aqmyslmz935.0cm/Juan Peak GR.8mmHg Mitral Valve MV E Xkkryjin37.8cm/sMV A Ozaaxbxa38.4cm/sE/A ratio0.8 TDI Lateral E' Peak V11.60cm/sMedial E' Peak V7.90cm/sE/Lateral E'4.5 E/Medial E'6.6 Pulmonary Valve PV Peak Jimtbeqo22.2cm/sPV Peak Grad.1mmHg Tricuspid Valve TR Peak Cbwfmnph312mc/sRAP QYKRBVKJ49coExQH Peak Gr.25mmHg [id number] LEFT VENTRICLE The left ventricle is normal size. There is borderline to mild concentric left ventricular hypertrophy. The left ventricular function is normal.EF-55-60% There is normal LV segmental wall motion. Transmitral Doppler flow pattern is Grade III-reversible restrictive diastolic dysfunction. No left ventricle thrombus noted on this study. There is no ventricular septal defect visualized. There is no left ventricular aneurysm. RIGHT VENTRICLE The right ventricle is normal size. There is normal right ventricular wall thickness. The right ventricular systolic function is normal. ATRIA The left atrium size is normal. The right atrium size is normal. The interatrial septum is intact with no evidence for an atrial septal defect. AORTIC VALVE The aortic valve is calcified but opens well. The aortic valve is moderately sclerotic. No aortic regurgitation is present. There is no aortic valvular stenosis. There is no aortic valvular vegetation. MITRAL VALVE The mitral valve is thickened but opens well. Mitral regurgitation is mild. There is no mitral valve stenosis. There is no evidence of mitral valve prolapse. TRICUSPID VALVE The tricuspid valve leaflets are thickened or calcified, but open well. There is mild tricuspid regurgitation.RVSP-35 mmof Hg There is no tricuspid valve stenosis. There is no tricuspid valve prolapse or vegetation. PULMONIC VALVE The pulmonary valve is normal in structure. There is trace pulmonic valvular regurgitation. There is no pulmonic valvular stenosis. GREAT VESSELS The aortic root is normal in size. The ascending aorta is normal in size. The pulmonary artery is normal. The IVC is normal in size and collapses >50% with inspiration. PERICARDIAL EFFUSION There is no pleural effusion. There is no pericardial effusion. <Conclusion> The left ventricle is normal size. There is borderline to mild concentric left ventricular hypertrophy. The left ventricular function is normal.EF-55-60% Mitral regurgitation is mild. There is mild tricuspid regurgitation.RVSP-35 mmof Hg The aortic valve is calcified but opens well. No aortic regurgitation is present. No thrombus noted
[2016-11-14] MEDS ORDERED: Pantoprazole 40 mg EC Tab PO SCH (06:30)
[2016-11-14 06:51] LABS: TOTAL PROTEIN, SERUM 6.8 g/dL (6.1-8.1)
[2016-11-14 08:19] LABS: HOMOCYSTEINE 9.2 umol/L (<11.4)
--- NOTE | 2016-11-14 11:03 | PN ---
DATE: 11/14/2016 REASON FOR CONSULTATION AND FOLLOWUP: Cardiac evaluation, right-sided weakness, CVA. BRIEF CLINICAL HISTORY: This is a 46-year-old male with no significant past medical history except a ctive tobacco abuse, history of gout, being followed by Dr. Oden. Came in with acute CVA, right-si ded upper and lower extremity weakness. Echo showed no evidence of thrombus. Workup for hypercoagul able state is in progress, pending. Denies any chest pain, shortness of breath, any palpitation. PHYSICAL EXAMINATION: VITAL SIGNS: Temperature afebrile, heart rate ____, blood pressure 147/92. HEENT: PERRLA. Extraocular muscles intact. NECK: Supple. No carotid bruits. No thyromegaly. CHEST: Clear to auscultation. HEART: S1, S2 regular. ABDOMEN: Soft. EXTREMITIES: Clubbing, cyanosis negative. BLOOD WORKUP: WBC 12.8, hemoglobin 17.6, hematocrit 50.7, platelet count 191. Chemistry as of 11/11: Sodium 138, potassium 4.8, chloride 98, carbon dioxide 28, anion gap of 17, BUN 19, creatinin e 1.1. Random sugar 117. Lipid profile shows triglycerides 173, cholesterol 230, LDL 158, HDL 841, TSH 2.7. IMPRESSION: Hypercoagulable state, prediabetic or diabetic, cerebrovascular accident, gout. Echocar diogram shows no thrombus, ejection fraction 55-60%, mild mitral regurgitation, mild tricuspid regurg itation, right ventricular systolic pressure of 35. RECOMMENDATION: Continue aspirin. Continue atorvastatin, started to a high dose of 80 mg because LD L is high and total cholesterol is high as well as high triglyceride level - 80 mg daily. Continue a spirin. Continue rehabilitation. Workup for hypercoagulable state is in progress. Will follow with you. Thank you, Dr. Oh, for providing us the opportunity in taking care of this patient. Zonia Page MD cc: [id number] TT: 11/14/2016 11:02:54 Confirmation # [id number] Dictation # [id number] mn
[2016-11-14 12:50] VITALS: BP 133/85; PULSE 103; RESP 21; TEMP 98.4
--- NOTE | 2016-11-14 18:11 | PN ---
DATE: 11/14/2016 ADDENDUM REASON FOR DICTATION: Addendum to the initial progress note dictated this morning. Discussed with Merle Mcpherson, mentioned that patient had infarction, CVA in the right parietal lobe with a distribution infarct. It is most likely secondary to arrhythmia because the frontal lobe involving the precentral gyrus, scattered infarct and cortical infarct in the parietal and midfrontal lobe of the left and sm all single cortical infarct in the right parietal lobe, so it could be arrhythmia because of multiple showering, so probably patient would get the benefit from Eliquis. We will start Eliquis and schedu le a INEZ and a loop recorder to assess whether patient goes into AFib. So far, patient is on monitor , did not show any arrhythmia, but long-term, since it is only 3-4 days been recorded, suggest want t o make sure for the long-term, the patient needs long-term anticoagulation if the patient goes into p aroxysmal AFib. Also, the INEZ to assess the plaque. We will follow with you. Thank you, Dr. Oh, for providing us the opportunity in taking care of the patient. Zonia Page MD cc: [id number] TT: 11/14/2016 18:10:16 Confirmation # [id number] Dictation # [id number]
--- NOTE | 2016-11-15 22:01 | DS ---
This is a 46-year-old man who presented to the acute care facility at [facility]'s ER with a stroke involving right-sided weakness and some difficulty with speech. He was seen in the Emergency Room, evaluated by neurology. CT scan and MRA was done, and because of the time of the stroke and the onset of symptoms was unknown, he was not a candidate for TPA. He was admitted to a monitored bed, seen by neurology, treated with statins and aspirin. MRA of the neck and head were done that were unremarkable. MRI confirmed the stroke. Physical therapy was begun. On the date of admission, he was out of bed, able to ambulate. He was able to move his legs, but had weakness in the elbow and shoulder of the right arm. Surprisingly, speech was a little involved, as well as hand grasp; hand grasp was 4/5 strength. I spoke with the patient at great length regarding rehab and exercise, motivation and my optimism for recovery. The course of this patient's brief hospitalization was uneventful. Acute rehabilitation facility was found and he was able to leave on , 11/14/2016. Transportation was an issue, so arrangements were made for his live in girltasley, a nurse formally at [facility], to transport him to [facility] for acute rehabilitation. FINAL DISCHARGE DIAGNOSES: 1. Stroke. 2. Tobacco use. We will followup with the patient in the office after he returns from acute rehabilitation. Bakari Oh MD cc: [id number] TT: 11/15/2016 22:01:34 oneyda SHARMA
[2016-11-16 04:53] LABS: PHOSPHATIDYLSERINE AB IGM <25 U/mL (<25)
[2016-11-16 15:50] LABS: B2 GLYCOPROTEIN I AB(IGA) <9 SAU (<=20); B2 GLYCOPROTEIN I AB(IGG) <9 SGU (<=20); B2 GLYCOPROTEIN I AB(IGM) <9 SMU (<=20)
[2016-11-16 21:53] LABS: CARDIOLIPIN AB (IGA) <11 APL (<=11); PHOSPHATIDYLSERINE AB IGA <20 U/mL (<20)
[2016-11-18 18:43] LABS: BETA 1 GLOBULIN 0.4 g/dL (0.4-0.6); BETA 2 GLOBULIN 0.3 g/dL (0.2-0.5); GAMMA GLOBULIN 0.8 g/dL (0.8-1.7)
== END 2016-11-14 17:54 | DRG 65 ==
LOC: ED 21:46 → ERH 11-12 01:34 → OBSVTOIN 11-12 01:34 → 2RNO 11-12 03:32 → 2RSO 11-12 03:32
PROVIDERS: ADMIT Internal Medicine; ATTEND Internal Medicine
DX: I63.9 Cerebral infarction, unspecified (principal); G81.91 Hemiplegia, unspecified affecting right dominant side; D68.59 Other primary thrombophilia; M48.02 Spinal stenosis, cervical region; E11.9 Type 2 diabetes mellitus without complications; E78.1 Pure hyperglyceridemia; E78.5 Hyperlipidemia, unspecified; M10.9 Gout, unspecified; Z72.0 Tobacco use; Z79.82 Long term (current) use of aspirin; Z82.49 Family history of ischemic heart disease and other diseases of the circulatory system; Z87.442 Personal history of urinary calculi

== ENCOUNTER 2018-08-05 12:36 | Emergency (ER) | payer BC, OTHER ==
[2018-08-05 12:49] VITALS: BMI 28.5
[2018-08-05 12:56] VITALS: RESP 18; TEMP 98.4; O2SAT 100
[2018-08-05] MEDS ORDERED: Sodium Chloride 0.9% 1,000 ML IV STA (13:07)
--- NOTE | 2018-08-05 13:14 | ED PDOC ---
Arrival/HPI - General Chief Complaint: Male Genitourinary Time Seen by Provider: 08/05/18 12:37 Historian: Patient - History of Present Illness Narrative History of Present Illness (Text): 08/05/18 13:08 48 y/o M, with past medical history of nephrolithiasis, presents to the Emergency department for evaluation of right sided flank pain since 1 hour prior to arrival. Patient informs symptoms are consistent with past episodes of nephrolithiasis, which required laser lithotripsy in the past. Patient denies taking any pain medication for the symptoms. Patient denies any other associated somatic complaints. Patient denies any fevers, chills, headache, dizziness, chest pain, shortness of breath, dyspnea on exertion, cough, abdominal pain, hematuria, dysuria, nausea, vomiting, diarrhea, neck pain, or any other complaints. PMD: Dr. Do Urologist: Dr. Gonzales Time/Duration: 1-3 hours Symptom Onset: Gradual Symptom Course: Unchanged Activities at Onset: Light Context: Home Past Medical History - Provider Review Nursing Documentation Reviewed: Yes - Infectious Disease Hx of Infectious Diseases: None - Tetanus Immunization Tetanus Immunization: Unknown - Cardiac Hx Hypertension: Yes - Renal Hx Kidney Stones: Yes - Musculoskeletal/Rheumatological Hx Falls: Yes - Gastrointestinal Hx Gastrointestinal Disorders: No - Genitourinary/Gynecological Hx Genitourinary Disorders: No - Psychiatric Hx Depression: No Hx Emotional Abuse: No Hx Physical Abuse: No Hx Substance Use: No - Anesthesia Hx Anesthesia: No Hx Anesthesia Reactions: No Hx Malignant Hyperthermia: No - Suicidal Assessment Feels Threatened In Home Enviroment: No Family/Social History - Physician Review Nursing Documentation Reviewed: Yes Family/Social History: No Known Family HX Smoking Status: Heavy Smoker > 10 Cigarettes Daily Hx Alcohol Use: No Hx Substance Use: No Hx Substance Use Treatment: No Allergies/Home Meds Allergies/Adverse Reactions: Allergies No Known Allergies Allergy (Verified 11/11/16 21:54) Review of Systems - Physician Review All systems were reviewed & negative as marked: Yes - Review of Systems Constitutional: absent: Fevers Respiratory: absent: SOB, Cough Cardiovascular: absent: Chest Pain Gastrointestinal: Abdominal Pain (Right sided flank pain). absent: Diarrhea, Nausea, Vomiting Genitourinary Male: absent: Dysuria, Hematuria, Urinary Output Changes Musculoskeletal: absent: Back Pain, Neck Pain Skin: absent: Rash Neurological: absent: Headache, Dizziness Physical Exam Vital Signs Reviewed: Yes Vital Signs Temp Pulse Resp BP Pulse Ox 08/05/18 12:55 98.4 F 67 18 143/62 100 Temperature: Afebrile Blood Pressure: Normal Pulse: Regular Respiratory Rate: Normal Appearance: Positive for: Well-Appearing, Non-Toxic, Comfortable Pain Distress: None Mental Status: Positive for: Alert and Oriented X 3 - Systems Exam Head: Present: Atraumatic, Normocephalic Pupils: Present: PERRL Extroacular Muscles: Present: EOMI Conjunctiva: Present: Normal Neck: Present: Normal Range of Motion Respiratory/Chest: Present: Clear to Auscultation, Good Air Exchange. No: Respiratory Distress, Accessory Muscle Use Cardiovascular: Present: Regular Rate and Rhythm, Normal S1, S2. No: Murmurs Abdomen: No: Tenderness, Distention, Peritoneal Signs Back: Present: CVA Tenderness (Right sided CVA tenderness) Upper Extremity: Present: Normal Inspection. No: Cyanosis, Edema Lower Extremity: Present: Normal Inspection. No: Edema Neurological: Present: GCS=15, CN II-XII Intact, Speech Normal Skin: Present: Warm, Dry, Normal Color. No: Rashes Psychiatric: Present: Alert, Oriented x 3, Normal Insight, Normal Concentration Medical Decision Making ED Course and Treatment: 08/05/18 13:08 Impression: 48 year old male presents to the ED for evaluation of right sided flank pain. Differential Diagnosis included but are not limited to: -- Nephrolithiasis Plan: -- CT of Abdomen/Pelvis -- IV Fluids -- Toradol -- Urine Culture -- Urinalysis -- Reassess and disposition Prior Visits: Notes and results from previous visits were reviewed. Progress Notes: - Lab Interpretations Lab Results: Lab Results 08/05/18 13:15: Urine Color Yellow, Urine Appearance Turbid, Urine pH 5.5, Ur Specific Limon >= 1.030, Urine Protein Trace H, Urine Glucose (UA) Negative, Urine Ketones Negative, Urine Blood Large H, Urine Nitrate Negative, Urine Bilirubin Negative, Urine Urobilinogen 0.2, Ur Leukocyte Esterase Negative, Urine RBC 0 - 2, Urine WBC Tntc H - Scribe Statement The provider has reviewed the documentation as recorded by the Scribe Maria Isabel Spaulding. All medical record entries made by the Scribe were at my direction and personally dictated by me. I have reviewed the chart and agree that the record accurately reflects my personal performance of the history, physical exam, medical decision making, and the department course for this patient. I have also personally directed, reviewed, and agree with the discharge instructions and disposition. Disposition/Present on Arrival - Present on Arrival Any Indicators Present on Arrival: No History of DVT/PE: No History of Uncontrolled Diabetes: No Urinary Catheter: No History of Decub. Ulcer: No History Surgical Site Infection Following: None - Disposition Have Diagnosis and Disposition been Completed?: Yes Diagnosis: Kidney stones Disposition: HOME/ ROUTINE Disposition Time: 14:48 Patient Plan: Discharge Patient Problems: Current Active Problems Problem Status Onset Kidney stones Acute Condition: IMPROVED Discharge Instructions (ExitCare): Kidney Stones (DC) Print Language: AZERI Additional Instructions: All medical record entries made by the Scribe were at my direction and personally dictated by me. I have reviewed the chart and agree that the record accurately reflects my personal performance of the history, physical exam, medical decision making, and the department course for this patient. I have also personally directed, reviewed, and agree with the discharge instructions and disposition. Please follow up with Dr. Gonzales(urology) in 3-5 days Please continue to drink large volumes of liquids and strain your urine Prescriptions: Ibuprofen [Motrin Tab] 800 mg PO Q6H #10 tab oxyCODONE/Acetaminophen [Percocet 5/325 mg Tab] 1 ea PO PRN PRN #6 tab PRN Reason: Pain, Severe (8-10) Referrals: Chitra Gonzales MD [Staff Provider] - Follow up with primary Forms: Cannae (Thai), WORK NOTE
[2018-08-05 14:19] LABS: PH,URINE 5.5 (4.7-8.0); URINE BILIRUBIN NEGATIVE (NEGATIVE); URINE BLOOD LARGE (NEGATIVE); URINE GLUCOSE (UA) NEGATIVE (NEGATIVE); URINE LEUKOCYTE ESTERASE NEGATIVE Leu/uL (NEGATIVE); URINE PROTEIN TRACE mg/dL (<30 mg/dL); URINE UROBILINOGEN 0.2 E.U./dL (<1 E.U./dL)
[2018-08-05 14:21] LABS: URINE APPEARANCE TURBID (CLEAR); URINE COLOR YELLOW (YELLOW)
[2018-08-05 14:25] LABS: URINE RBC 0 - 2 /hpf (0-2); URINE WBC TNTC /hpf (0-6)
--- NOTE | 2018-08-05 14:27 | CT ---
Date of service: 08/05/2018 PROCEDURE: CT Abdomen and Pelvis without intravenous contrast HISTORY: h/o kidney stones w/ R CVA tenderness COMPARISON: 01/25/2014 TECHNIQUE: Without contrast.. Contrast dose: Radiation dose: Total exam DLP = 788.22 mGy-cm. This CT exam was performed using one or more of the following dose reduction techniques: Automated exposure control, adjustment of the mA and/or kV according to patient size, and/or use of iterative reconstruction technique. FINDINGS: LOWER THORAX: Unremarkable. LIVER: There is a 6 x 10 cm mass in the right lobe of the liver with an area of central lucency. This is unchanged in size and most likely represents a benign hemangioma or focal nodular hyperplasia. GALLBLADDER AND BILE DUCTS: Unremarkable. PANCREAS: Unremarkable. No gross lesion or ductal dilatation. SPLEEN: Unremarkable. ADRENALS: Unremarkable. No mass. KIDNEYS AND URETERS: There is bilateral nephrolithiasis. There is a 4 mm stone at the right UVJ with mild hydronephrosis and hydroureter on the right. VASCULATURE: Unremarkable. No aortic aneurysm. No aortic atherosclerotic calcification or mural plaque present. BOWEL: Unremarkable. No obstruction. No gross mural thickening. APPENDIX: Unremarkable. Normal appendix. PERITONEUM: Unremarkable. No free fluid. No free air. LYMPH NODES: Unremarkable. No enlarged lymph nodes. BLADDER: Unremarkable. REPRODUCTIVE: Unremarkable. BONES: Multilevel disc degeneration OTHER FINDINGS: None. IMPRESSION: There is bilateral nephrolithiasis. There is a 4 mm stone at the right UVJ with mild hydronephrosis and hydroureter on the right. There is a 6 x 10 cm mass in the right lobe of the liver with an area of central lucency. This is unchanged in size and most likely represents a benign hemangioma or focal nodular hyperplasia.
[2018-08-05 14:43] VITALS: BP 138/65; PULSE 65
== END 2018-08-05 15:14 | disposition home or self-care (01) ==
LOC: ED 12:36
DX: N20.0 Calculus of kidney (principal); I10 Essential (primary) hypertension; F17.210 Nicotine dependence, cigarettes, uncomplicated
CPT/HCPCS: 74176; 81001; 87086; 96360; 96372; 99284; J1885; J7030